=== PATIENT | male | born 1990 | race African-American/Black ===

== ENCOUNTER → 2016-10-12 | Emergency (ER) | payer SELFPAY ==
--- NOTE | 2016-10-12 23:34 | ERRECORD ---
[facility]ALTH SYSTEM EMERGENCY RECORD PAST MEDICAL HISTORY (22:45 KASA) MEDICAL HISTORY: Tetanus immunization up to date, Date of immunization: 2015, Flu vaccine not up to date, Pneumococcal vaccine not up to date, Past medical history includes history of hypertension, NON COMPLIANT. MALE SURGICAL HISTORY: "URINARY". SOCIAL HISTORY: Patient drinks socially, once a month, Patient is a former drug user, abused marijuana, Drug history notes: 05/2014, Patient is a former tobacco user, smoked cigarettes, Patient quit smoking less than 10 years ago, Lives at home, with family. KNOWN ALLERGIES No Known Drug Allergies CURRENT MEDICATIONS (22:42 KASA) None VITAL SIGNS (22:42 KASA) VITAL SIGNS: BP: 177/98, Pulse: 75, Resp: 20, Temp: 98.9 (Oral), Pain: 0, O2 sat: 98 on Room Air, Time: 10/12/2016 22:42. PROBLEM LIST No recorded problems DIAGNOSIS (23:06 OCTAVIO) FINAL: PRIMARY: None, ADDITIONAL: unknow. PRESCRIPTION No recorded prescriptions DISPOSITION (23:06 LEEAngelita) PATIENT: Disposition Type: Eloped, Disposition: Left Without Being Seen, Patient left the department. [place]: CAS=CHRISSY Matt, Andreina CUNNINGHAM=CHRISSY Rodriguez, Rj &a-1R&a+25V*p+0X*[id number]*c202B*c15G*c2P*p-0X&a-25V&a+1R Name: Darlyn Hawkgudelia Cash : 1990 M26 MedRec: [id number] AcctNum: [id number] Prepared: MonOct 12, 2016 23:12 by Interface Page 1 of 1 pMD MTDD
--- NOTE | 2016-10-12 23:38 | PICIS ---
[facility] EMERGENCY RECORD TRIAGE (22:42 KASA) PATIENT: NAME: Itzel Hawk, AGE: 26, GENDER: male, : Mon1990, TIME OF GREET: MonOct 12, 2016 22:36, PREFERRED LANGUAGE: Nam[place]ian, ETHNICITY: Not or , ECODE BILLING MAP: [facility], SSN: [id number], Zip Code: [address], KG WEIGHT: 81.65, PHONE: , , , PERSON ID: [id number], PCP: None. (22:42 KASA) TRIAGE NOTES: Wants to be checked for STDs, girlfriend called and said she had something. trichomoniasis. (22:42 KASA) COMPLAINT: STD EVALUATION. (22:42 KASA) ADMISSION: URGENCY: 4 Non Urgent, ADMISSION SOURCE: Home, TRANSPORT: CAR, BED: ER -04. (22:42 KASA) ASSESSMENT: Assessment: Denies any symptoms. (22:45 KASA) PAIN: No complaint of pain. (22:45 KASA) SIRS SCORING: Heart Rate 55-109 (0), Temp range 96.8-101.1 (0), respiratory rate 12-24 (0), Mental Status altered: no (0). (22:45 KASA) TRIAGE SCREENING: Patient denies suicidal ideation, Patient denies presence of domestic violence. (22:45 KASA) PROVIDERS: TRIAGE NURSE: Andreina Matt RN. (22:42 KASA) VITAL SIGNS: BP 177/98, Pulse 75, Resp 20, Temp 98.9, (Oral), Pain 0, O2 Sat 98, on Room Air, Time 10/12/2016 22:42. (22:42 KASA) PREVIOUS VISIT ALLERGIES: No Known Drug Allergies. (22:42 KASA) No Known Drug Allergies. (22:45 KASA) KNOWN ALLERGIES No Known Drug Allergies CURRENT MEDICATIONS (22:42 KASA) None VITAL SIGNS (22:42 KASA) VITAL SIGNS: BP: 177/98, Pulse: 75, Resp: 20, Temp: 98.9 (Oral), Pain: 0, O2 sat: 98 on Room Air, Time: 10/12/2016 22:42. NURSING ASSESSMENT: GENITOURINARY (22:45 KASA) CONSTITUTIONAL: Patient arrives ambulatory, Gait steady, History obtained from patient, Patient appears comfortable, Patient cooperative, Oriented to person, place and time, Skin warm, Skin dry, Skin normal in color, Mucous membranes pink, Mucous membranes moist, Patient complains of Wants to be tested for STDs, Wants to be checked for STDs, states his girlfriend called and said she had something. GENITOURINARY MALE: no associated urinary complaints, Notes: Denies urinary complaints. ABDOMEN: Abdomen assessment findings include abdomen symmetrical, Abdomen soft, non-tender, Bowel sound normal, no associated nausea, no associated vomiting, no associated diarrhea, no associated constipation. &a-1R&a+25V*p+0X*[id number]*c202B*c15G*c2P*p-0X&a-25V&a+1R Name: Itzel Hawk Shailesh : 1990 M26 MedRec: [id number] AcctNum: [id number] Prepared: MonOct 12, 2016 23:18 by Interface Page 1 of 2 D [facility] EMERGENCY RECORD SAFETY: Side rails up, Cart/Stretcher in lowest position, Call light within reach, Hospital ID band on. ORDER DETAILS Order Name: GC/Chlamydia Profile by PCR, Status: Canceled, Time: 23:04 10/12/2016, User: OCTAVIO, - Ordered for: MD Tsai Joshua, - Entered by: MD Tsai Joshua - MonOct 12, 2016 22:51, - Quantity: 1, Order Name: Urinalysis with Microscopic, Status: Canceled, Time: 23:05 10/12/2016, User: OCTAVIO, - Ordered for: MD Tsai Joshua, - Entered by: MD Tsai Joshua - MonOct 12, 2016 22:52, - Quantity: 1. PAST MEDICAL HISTORY (22:45 KASA) MEDICAL HISTORY: Tetanus immunization up to date, Date of immunization: 2015, Flu vaccine not up to date, Pneumococcal vaccine not up to date, Past medical history includes history of hypertension, NON COMPLIANT. MALE SURGICAL HISTORY: "URINARY". SOCIAL HISTORY: Patient drinks socially, once a month, Patient is a former drug user, abused marijuana, Drug history notes: 05/2014, Patient is a former tobacco user, smoked cigarettes, Patient quit smoking less than 10 years ago, Lives at home, with family. EVENTS TRANSFER: Triage to Emergency Emergency Room -04. (MonOct 12, 2016 22:42 CAS) Removed from Emergency Emergency Room -04. (23:06 OCTAVIO) PROBLEM LIST No recorded problems DIAGNOSIS (23: LEEW) FINAL: PRIMARY: None, ADDITIONAL: unknow. DISPOSITION (23:06 LEEW) PATIENT: Disposition Type: Eloped, Disposition: Left Without Being Seen, Patient left the department. PRESCRIPTION No recorded prescriptions IMAGING (23:09 OCTAVIO) *SUPPLY CHARGE SHEET: Image captured from scanner. [place]: CAS=CHRISSY Matt, Andreina CUN[place]AM=CHRISSY Rodriguez, Rj &a-1R&a+25V*p+0X*[id number]*c202B*c15G*c2P*p-0X&a-25V&a+1R Name: Itzel Hawk : 1990 M26 MedRec: [id number] AcctNum: [id number] Prepared: MonOct 12, 2016 23:18 by Interface Page 2 of 2 pMD MTDD
== END ==
LOC: NAV ERS 22:35
DX: Z53.21 Procedure and treatment not carried out due to patient leaving prior to being seen by health care provider (principal)

== ENCOUNTER 2017-06-12 14:01 | Emergency (ER) | payer SELFPAY ==
[2017-06-12] MEDS ORDERED: Fluorescein Opthalmic Strip ONE (14:14)
[2017-06-12] MEDS ORDERED: Tetracaine HCl 0.5% Ophth Soln 2 ML Bottle ONE (14:14)
[2017-06-12] MEDS ORDERED: Erythromycin Base 0.5% Oint 1 GM TUBE ONE (14:26)
== END 2017-06-12 14:35 | disposition home or self-care (01) ==
LOC: NAV ERS 14:01
DX: S05.02XA Injury of conjunctiva and corneal abrasion without foreign body, left eye, initial encounter (principal); I10 Essential (primary) hypertension; Z87.891 Personal history of nicotine dependence; X58.XXXA Exposure to other specified factors, initial encounter
CPT/HCPCS: 99283

== ENCOUNTER 2017-09-15 13:50 | Emergency (ER) | payer OTHER, SELFPAY ==
[2017-09-15 15:00] LABS: #Basophils 0.1 thou/uL (0.0-0.2); #Lymphocytes 2.1 thou/uL (1.20-3.40); #Monocytes 0.4 thou/uL (0.11-0.59); #Neutrophils 4.3 thou/uL (1.40-6.50); %Basophils 1.3 % (0.0-1.0); %Eosinophils 0.7 % (0.0-10.0); %Lymphocytes 30.4 % (21.0-51.0); %Monocytes 6.2 % (0.0-10.0); %Neutrophils 61.4 % (42.0-75.0); Hemoglobin 14.8 g/dL (14.0-18.0); Mean Corpuscular HGB CONC 33.4 g/dL (32.0-36.0); Mean Corpuscular Hemoglobin 29.5 pg (27.0-31.0); Mean Corpuscular Volume 88.5 fl (80.0-94.0); Mean Platelet Volume 7.8 fL (7.4-10.4); Platelet Count 291 thou/uL (130-400); RBC Distribution Width 11.3 % (11.5-14.5)
[2017-09-15 15:15] LABS: CKMB 2.1 ng/mL (0-6.6); Troponin I Less than 0.010 ng/mL (< 0.028)
--- NOTE | 2017-09-15 15:25 | RAD ---
CHEST HISTORY: A 27-year-old male with a history of chest pain, particularly with movement and twisting. Pinned bet ween a gate three weeks ago. FINDINGS: Heart size is normal. Lungs are clear. No pneumonia, edema, or pleural effusion. IMPRESSION: No acute intrathoracic disease. Stable from prior study. POS: [facility]
[2017-09-15 15:26] LABS: Anion Gap 15 mmol/L (10-20); BUN (Urea Nitrogen) 9 mg/dL (8.9-20.6); Calc. Creatinine Clearance 0 mL/min (70-130); Calcium 9.6 mg/dL (7.8-10.44); Carbon Dioxide 25 mmol/L (22-29); Chloride 106 mmol/L (98-107); Estimated GFR-MDRD Greater than 90; Glucose 111 mg/dL (70-105); Potassium 3.7 mmol/L (3.5-5.1); Sodium 142 mmol/L (136-145)
== END 2017-09-15 15:56 | disposition home or self-care (01) ==
LOC: NAV ERS 13:50
DX: R07.89 Other chest pain (principal); K59.00 Constipation, unspecified; K92.1 Melena; I10 Essential (primary) hypertension; F17.210 Nicotine dependence, cigarettes, uncomplicated
CPT/HCPCS: 71020; 80048; 82274; 82553; 84484; 85025; 93005

== ENCOUNTER 2017-09-25 08:22 | Emergency (ER) | payer OTHER ==
[2017-09-25] MEDS ORDERED: Lidocaine 1% 20 ML MDV ONE (08:53)
== END 2017-09-25 09:39 | disposition home or self-care (01) ==
LOC: NAV ERS 08:22
DX: L02.426 Furuncle of left lower limb (principal); I10 Essential (primary) hypertension; F17.210 Nicotine dependence, cigarettes, uncomplicated; Z79.899 Other long term (current) drug therapy
CPT/HCPCS: 10060; 87070; 87077; 87186; 87205; J2001

== ENCOUNTER 2017-09-27 08:37 | Emergency (ER) | payer OTHER | END 2017-09-27 09:25 | disposition home or self-care (01) | LOC: NAV ERS 08:37 | DX: Z48.817 Encounter for surgical aftercare following surgery on the skin and subcutaneous tissue (principal); I10 Essential (primary) hypertension; F17.210 Nicotine dependence, cigarettes, uncomplicated; Z79.899 Other long term (current) drug therapy | CPT/HCPCS: 99282 ==

== ENCOUNTER 2017-12-18 19:31 | Emergency (ER) | payer OTHER | END 2017-12-18 20:03 | disposition home or self-care (01) | LOC: NAV ERS 19:31 | DX: R05 Cough (principal); J45.909 Unspecified asthma, uncomplicated; I10 Essential (primary) hypertension; F17.210 Nicotine dependence, cigarettes, uncomplicated | CPT/HCPCS: 99283 ==